=== PATIENT | female | born 1955 | race Caucasian/White ===

== ENCOUNTER → 2020-02-02 | Outpatient (CLI) | payer BC ==
--- NOTE | 2020-02-02 10:39 | KCIC ---
STUDY: MRI of the left shoulder without contrast INDICATION: Left upper arm pain after a fall 2 months prior. COMPARISON: None. TECHNIQUE: Multiplanar MR imaging of the left shoulder performed without the use of intravenous or intra-articular contrast. FINDINGS: Mild study degradation on account of motion. AC joint: Mild AC joint arthrosis. Small amount of fluid and edema-like signal of the subacromial subdeltoid bursa. Rotator cuff: High-grade, articular sided tear of the anterior infraspinatus at the footprint involving around 90 percent tendon cross-sectional thickness. The tear measures approximately 1 cm AP by 0.6 cm mediolateral. Background supraspinatus tendinosis. Low-grade interstitial tear at the supraspinatus/infraspinatus junction, at the footprint, involving less than 25 percent tendon cross-sectional thickness, image 5 series 8 and image 8 series 6. Background infraspinatus tendinosis. The teres minor is intact. Mild subscapularis tendinosis. Rotator cuff musculature bulk and signal is normal. Labrum: Intact. Long head biceps tendon: Intact and normally located. Cartilage: No high-grade/full-thickness chondral defect. Bones: Heterogeneous marrow signal without aggressive features. Degenerative cystic change at the greater tuberosity in the region of the supraspinatus/infraspinatus junction. Cystic change along the lateral wall of the bicipital groove, image 9 series 3. No acute fracture. Miscellaneous: Heterogeneous edema-like signal at the rotator interval such as seen on images 13 and 14 series 5. No shoulder joint effusion. Unremarkable axilla. Impression: 1. Focal high-grade tear of the anterior supraspinatus at the footprint involving around 90 percent tendon cross-sectional thickness. The tear measures approximately 1 cm AP by 0.6 cm mediolateral. Additional low-grade interstitial tear at the supraspinatus/infraspinatus junction. Background supraspinatus and infraspinatus tendinosis. Mild subscapularis tendinosis. Normal rotator cuff musculature bulk. 2. Intact labrum and long head biceps tendon. No focal chondral defect. 3. Heterogeneous edema-like signal at the rotator interval which is nonspecific but can be seen with adhesive capsulitis. Electronically signed by: AKIKO ANDERSON MD (02/02/2020 10:36 AM) [place] [id number]
== END | disposition home or self-care (01) ==
LOC: KCIC MRI 08:19
PROVIDERS: ATTEND Nurse Practitioner Family
DX: S46.012A Strain of muscle(s) and tendon(s) of the rotator cuff of left shoulder, initial encounter (principal); X58.XXXA Exposure to other specified factors, initial encounter; Y93.89 Activity, other specified; Y92.89 Other specified places as the place of occurrence of the external cause; Y99.8 Other external cause status
CPT/HCPCS: 73221